=== PATIENT | female | born 1945 | race Caucasian/White ===

== ENCOUNTER → 2016-07-06 | Outpatient (CLI) | payer MEDICARE, OTHER ==
[~2016-07-06] MED LIST: ASPI-558 PO; ATOR20TA18 PO; BIOT1TAB6 PO; BIOT500C PO; ESTR1TAB88 PO; FISH1CAP PO; IBUP-1324 PO; LEVO100T82 PO; MAGN250T27 PO; METO100T60 PO; MULT1CAP47 PO; OSTEO BIFLEX; VIT1CAPS14 PO; VITA1CAP65 PO
== END ==
LOC: WC.BC 15:09
DX: Z12.31 Encounter for screening mammogram for malignant neoplasm of breast (principal)
CPT/HCPCS: 77063; G0202